=== PATIENT | male | born 1990 | race Two or more races ===

== ENCOUNTER 2016-09-16 13:27 | Emergency (ER) | payer OTHER ==
[2016-09-16 13:33] VITALS: BMI 25.8
--- NOTE | 2016-09-16 14:59 | PDOC ---
History of Present Illness - General History Source: Patient Exam Limitations: No Limitations - History of Present Illness Initial Comments: 09/16/16 15:01 The patient is a 26-year-old man, accompanied by his mother, with no past medical history who presents to the emergency department via walk-in for further evaluation of dizziness. No recent head injury, fall or other trauma. Patient states that he was in his normal state of health last night. This morning, he woke up and immediately felt dizzy and numbness on both of his hands. He describes his dizziness as a room-spinning sensation. He states he got up and walked around and recalls that standing and walking made his symptoms worse. He also reports associated symptoms of yellow emesis. No blood. He currently states that he is not dizzy and is mildly nauseous. He also recalls recently endorsing a stuffy nose w/ o cough, sob. No fever, chills, generalized weakness. No chest pain, lightheadedness, dizziness, palpitations, headache, visual changes. No abdominal pain, nausea, vomiting, diarrhea, dysuria, hematuria, frequency. No tingling, weakness sensations throughout his extremities. Allergies: No Known Drug Allergies Past Surgical History: None reported Social History: No tobacco, ETOH or recreational drug use. Primary Care Physician: Dr. Alberto Sanders <Nilam Fernandez - Last Filed: 09/16/16 16:26> <Steven Schulz - Last Filed: 09/17/16 20:23> - General Chief Complaint: Nausea/Vomiting Stated Complaint: DIZZINESS & VOMITING Time Seen by Provider: 09/16/16 14:14 Past History <Nilam Fernandez - Last Filed: 09/16/16 16:26> - Past Medical History Suicide Attempt (Hx): No - Immunization History Immunization Up to Date: Yes - Psycho/Social/Smoking Cessation Hx Anxiety: No Suicidal Ideation: No Smoking Status: No Smoking History: Never smoked Have you smoked in the past 12 months: No Number of Cigarettes Smoked Daily: 0 Information on smoking cessation initiated: No Hx Alcohol Use: No Drug/Substance Use Hx: No Substance Use Type: None <Steven Schulz - Last Filed: 09/17/16 20:23> - Past Medical History Allergies/Adverse Reactions: Allergies Allergy/AdvReac Type Severity Reaction Status Date / Time No Known Allergies Allergy Verified 09/16/16 13:33 Home Medications: Ambulatory Orders No Home Medications 0 dose .ROUTE UTDICT 12/14/13 Meclizine HCl [Antivert -] 25 mg PO TID PRN #14 tablet 09/16/16 Review of Systems - Review of Systems Able to Perform ROS?: Yes Comments:: 09/16/16 15:01 CONSTITUTIONAL: No reported: Fever, Chills, Diaphoresis, Generalized Weakness, Malaise, Loss of Appetite HEENT: No reported: Rhinorrhea, Nasal Congestion, Throat Pain, Throat Swelling, Difficulty Swallowing, Mouth Swelling, Ear Pain, Eye Pain, Visual Changes CARDIOVASCULAR: No reported: Chest Pain, Syncope, Palpitations, Irregular Heart Rate, Lightheadedness, Peripheral Edema RESPIRATORY: No reported: Cough, Shortness of Breath, SOB with Exertion, Orthopnea, Wheezing , Stridor, Hemoptysis GASTROINTESTINAL: Reported: Nausea. Vomiting. No reported: Abdominal pain, Abdominal Distension, Diarrhea, Constipation, Melena, Hematochezia GENITOURINARY: No reported: Dysuria, Frequency, Urgency, Hesitancy, Flank Pain, Genital Pain MUSCULOSKELETAL: No reported: Myalgia, Arthralgia, Joint Swelling, Back pain, Neck Pain SKIN: No reported: Rash, Itching, Pallor HEMEATOLOGIC/IMMUNOLOGIC: No reported: Easy Bleeding, Easy Bruising, Lymphadenopathy, Frequent infections ENDOCRINE: No reported: Unexplained Weight Gain, Unexplained Weight Loss, Heat Intolerance , Cold Intolerance NEUROLOGIC: Reported: Dizziness. Numbness on both hands. No reported: Headache, Focal Weakness, Paresthesias, Unsteady Gait, Seizure, Mental Status Changes, Incontinence PSYCHIATRIC: No reported: Anxiety, Depression <Nilam Fernandez - Last Filed: 09/16/16 16:26> *Physical Exam - Vital Signs Last Vital Signs Temp Pulse Resp BP Pulse Ox 99 F 66 18 145/73 99 09/16/16 13:28 09/16/16 13:28 09/16/16 13:28 09/16/16 13:28 09/16/16 13:28 - Physical Exam Comments: 09/16/16 15:01 GENERAL: The patient is awake, alert, and fully oriented, Nontoxic - in no acute distress. HEAD: Normocephalic, atraumatic. EYES: extraocular movements intact, sclera anicteric, conjunctiva clear. + Horizontal nystagmus ENT: Normal voice, Moist mucous membranes. NECK: Normal range of motion, supple LUNGS: Breath sounds equal, clear to auscultation bilaterally. No wheezes, no rhonchi, no rales. HEART: Regular rate and rhythm, without murmur, rub or gallop. ABDOMEN: Soft, nontender, normoactive bowel sounds. No guarding, no rebound.No CVA tenderness EXTREMITIES: Normal range of motion, no edema. No clubbing or cyanosis. No cords , erythema, or tenderness. NEURO: Mental status: The patient is oriented x3. Cranial nerves: Cranial nerves II through XII are intact Motor: The upper extremities are 5 over 5 in all muscle groups. The lower extremities are 5 over 5 in all muscle groups. No pronator drift. Sensation: Sensation is intact to light touch throughout. Neg romberg Cerebellar: Lmmzwr-vqijhd-tdge is normal in both upper extremities. Heel-knee- doll is normal in both lower extremities. Reflexes: 2+ and symmetric in the upper and lower extremities. Gait: Normal. Heel and toe walking are normal. Tandem gait is normal. PSYCH: Normal mood, normal affect. SKIN: Warm, Dry, normal turgor. <Nilam Fernandez - Last Filed: 09/16/16 16:26> - Vital Signs Last Vital Signs Temp Pulse Resp BP Pulse Ox 99 F 66 18 145/73 99 09/16/16 13:28 09/16/16 13:28 09/16/16 13:28 09/16/16 13:28 09/16/16 13:28 <Steven Schulz - Last Filed: 09/17/16 20:23> ED Treatment Course - LABORATORY CBC & Chemistry Diagram: 09/16/16 15:09 09/16/16 15:09 <Nilam Fernandez - Last Filed: 09/16/16 16:26> - LABORATORY CBC & Chemistry Diagram: 09/16/16 15:09 09/16/16 15:09 <Steven Schulz - Last Filed: 09/17/16 20:23> Medical Decision Making - Medical Decision Making 09/16/16 15:32 26y M woke with room spinning dizziness associated with nausea/vomiting, which has since largely resolved. no associate dheadache, cp, neck pain. pts exam unremarkable here, normal neuro and normal cerebellar finidngs. pt endorsed abd pain upon presentation but had since reoslved. suspect vertigo will give meclizine will ck labs to r/o anemia, metaoblic dernagement will reassess A portion of this note was documented by scribe services under my direction. I have reviewed the details of the note, within reason, and agree with the documentation with the following case summary and management plan written by me 09/16/16 16:22 labs reviewed noted for leukocytposis - p thas no sypmtoms suggestive of infection - suspect may be secondary to the ovmiting/stress this morning. pts abd was reassessed and it is soft nontender. pt feeling improved will d/c the pt with pmd fu return precautions were discused I discussed the physical exam findings, ancillary test results and final diagnoses with the patient. I answered all of the patient's questions. The patient was satisfied with the care received and felt comfortable with the discharge plan and treatment plan. The patient will call their primary care physician within 24 hours to arrange follow-up and will return to the Emergency Department with any new, persistent or worsening symptoms. <Steven Schulz - Last Filed: 09/17/16 20:23> *DC/Admit/Observation/Transfer - Attestations Scribe Attestion: 09/16/16 15:01 Documentation prepared by Nilam Fernandez, acting as diploma medical assistant for Steven Schulz MD. <Nilam Fernandez - Last Filed: 09/16/16 16:26> - Discharge Dispostion Admit: No <Steven Schulz - Last Filed: 09/17/16 20:23> Diagnosis at time of Disposition: Vertigo - Discharge Dispostion Disposition: HOME Condition at time of disposition: Improved - Prescriptions Prescriptions: Meclizine HCl [Antivert -] 25 mg PO TID PRN #14 tablet PRN Reason: Vertigo - Referrals Referrals: Alberto Sanders MD [Primary Care Provider] - - Patient Instructions Printed Discharge Instructions: DI for Vertigo Additional Instructions: Return to the emergency department immediately with ANY new, persistent or worsening symptoms. You MUST call and follow up with your doctor tomorrow for further evaluation of your symptoms. Results were discussed with you. Please make sure your doctor reviews the results of your emergency evaluation. If you had any xrays during your visit, it was read preliminarily by myself, a Radiologist will review it and if there are any additional findings we will call you. Print Language: DIVEHI
[2016-09-16] MEDS ORDERED: MECLIZINE HCL 25 MG TABLET (FP) PO ONE (15:04)
[2016-09-16] MEDS ORDERED: SODIUM CHLORIDE 1,000 ML IV ONE (15:04)
[2016-09-16] MEDS ORDERED: MECLIZINE HCL 25 MG TABLET (FP) ONE (15:14)
[2016-09-16 15:18] LABS: BASOPHIL 0.3 % (0-2.0); EOSINOPHIL 0.1 % (0-4.5); MCH 27.3 pg (25.7-33.7); MCHC 33.8 g/dl (32.0-35.9); MEAN CELL VOLUME 80.6 fl (80-96); MEAN PLT VOLUME 8.4 fl (7.5-11.1); NEUTROPHILS 88.3 % (42.8-82.8); PLATELET COUNT 258 K/MM3 (134-434); RDW 13.3 % (11.9-15.9); WHITE BLOOD COUNT 16.3 K/mm3 (4.0-10.0)
[2016-09-16 15:35] LABS: ALBUMIN 4.5 g/dl (3.4-5.0); ANION GAP 12 (8-16); CALCIUM 9.4 mg/dL (8.5-10.1); CO2 26 mmol/L (21-32); CREATININE 0.8 mg/dL (0.7-1.3); GLUCOSE,RANDOM 88 mg/dL (74-106); SGOT/AST 22 U/L (15-37); SGPT/ALT 23 U/L (12-78)
[2016-09-16 15:37] LABS: ALK PHOS 96 U/L (45-117); BILIRUBIN,TOTAL 0.9 mg/dL (0.2-1.0); TOT PROT 7.8 g/dl (6.4-8.2)
[2016-09-16 16:46] VITALS: BP 126/76; PULSE 67; TEMP 98.1
== END 2016-09-16 16:46 | disposition home or self-care (01) ==
LOC: JER 13:27
PROC: 3E0337Z Introduction of Electrolytic and Water Balance Substance into Peripheral Vein, Percutaneous Approach (ICD-10-PCS; principal; 2016-09-16)
DX: R42 Dizziness and giddiness (principal)
CPT/HCPCS: 36415; 80053; 85025; 96360; 99283-25

== ENCOUNTER 2018-07-15 04:12 | Emergency (ER) | payer OTHER ==
[2018-07-15 05:25] VITALS: BP 120/69; PULSE 91; TEMP 98.2; BMI 25.8
--- NOTE | 2018-07-15 05:40 | PDOC ---
History of Present Illness - General Chief Complaint: Pain Stated Complaint: STOMACH ACHE/VOMITING Time Seen by Provider: 07/15/18 05:40 History Source: Patient - History of Present Illness Initial Comments: 07/15/18 06:28 28 year old male with NV and epigastric pain after eating rice and beans. denies diarrhea, fever/ chills. no pmhx' Past History - Past Medical History Allergies/Adverse Reactions: Allergies Allergy/AdvReac Type Severity Reaction Status Date / Time No Known Allergies Allergy Verified 07/15/18 05:26 Home Medications: Ambulatory Orders No Home Medications 0 dose .ROUTE UTDICT 12/14/13 Meclizine HCl [Antivert -] 25 mg PO TID PRN #14 tablet 09/16/16 - Immunization History Immunization Up to Date: Yes - Suicide/Smoking/Psychosocial Hx Smoking Status: No Smoking History: Current some day smoker Have you smoked in the past 12 months: Yes Number of Cigarettes Smoked Daily: 5 Information on smoking cessation initiated: No Hx Alcohol Use: Yes Drug/Substance Use Hx: Yes (Marijuana) Substance Use Type: None *Physical Exam - Vital Signs Last Vital Signs Temp Pulse Resp BP Pulse Ox 98.2 F 91 H 18 120/69 99 07/15/18 04:12 07/15/18 04:12 07/15/18 04:12 07/15/18 04:12 07/15/18 04:12 - Physical Exam General Appearance: Yes: Appropriately Dressed HEENT: positive: Tonsillar Erythema Respiratory/Chest: positive: Lungs Clear, Normal Breath Sounds Cardiovascular: positive: Regular Rhythm, Regular Rate Gastrointestinal/Abdominal: positive: Normal Bowel Sounds, Tender (epigastric area only), Soft Extremity: positive: Normal Capillary Refill, Normal Inspection Integumentary: positive: Normal Color, Dry, Warm Neurologic: positive: Fully Oriented, Alert, Normal Mood/Affect Moderate Sedation - Procedure Monitoring Vital Signs: Procedure Monitoring Vital Signs Temperature 98.2 F 07/15/18 04:12 Pulse Rate 91 H 07/15/18 04:12 Respiratory Rate 18 07/15/18 04:12 Blood Pressure 120/69 07/15/18 04:12 O2 Sat by Pulse Oximetry (%) 99 07/15/18 04:12 Medical Decision Making - Medical Decision Making 07/15/18 06:39patient feels better. tolerated water. no vomiting *DC/Admit/Observation/Transfer Diagnosis at time of Disposition: Gastroenteritis - Discharge Dispostion Disposition: HOME Condition at time of disposition: Fair - Referrals Referrals: Alberto Sanders MD [Primary Care Provider] - Call tomorrow - Patient Instructions Printed Discharge Instructions: [place] Diet Additional Instructions: drink plenty of fluids take Maalox every 6 hours as needed for gas start a bland diet (bananas, rice apples toast) follow up with your doctor Additional Instructions: * Please call your personal physician to report your Emergency Department visit and to report your progress, if any. * If there is no improvement in symptoms in 2 days call your physician. * Return to the Emergency Department for any worsening symptoms. - Post Discharge Activity Forms/Work/School Notes: Back to Work
[2018-07-15] MEDS ORDERED: ONDANSETRON *ODT* 4 MG TABLET SL ONE (05:45)
--- NOTE | 2018-07-15 05:50 | PDOC ---
*Physical Exam - Vital Signs Last Vital Signs Temp Pulse Resp BP Pulse Ox 98.2 F 91 H 18 120/69 99 07/15/18 04:12 07/15/18 04:12 07/15/18 04:12 07/15/18 04:12 07/15/18 04:12 Medical Decision Making - Medical Decision Making 07/15/18 05:49 Patient seen by the advanced practice provider under my direct supervision. Ancillary testing reviewed as necessary. I agree with plan as outlined by the advanced practice provider *DC/Admit/Observation/Transfer Diagnosis at time of Disposition: Gastroenteritis - Discharge Dispostion Disposition: HOME Condition at time of disposition: Fair - Referrals Referrals: Alberto Sanders MD [Primary Care Provider] - Call tomorrow - Patient Instructions Printed Discharge Instructions: [place] Diet Additional Instructions: drink plenty of fluids take Maalox every 6 hours as needed for gas start a bland diet (bananas, rice apples toast) follow up with your doctor Additional Instructions: * Please call your personal physician to report your Emergency Department visit and to report your progress, if any. * If there is no improvement in symptoms in 2 days call your physician. * Return to the Emergency Department for any worsening symptoms. - Post Discharge Activity Forms/Work/School Notes: Back to Work
[2018-07-15] MEDS ORDERED: ONDANSETRON *ODT* 4 MG TABLET ONE (05:54)
[2018-07-15] MEDS ORDERED: MAG HYDROX/AL HYDROX/SIMETH 30 ML UNIT-DOSE CUP PO ONE (06:00)
[2018-07-15] MEDS ORDERED: MAG HYDROX/AL HYDROX/SIMETH 30 ML UNIT-DOSE CUP ONE (06:01)
== END 2018-07-15 07:12 | disposition home or self-care (01) ==
LOC: JER 04:12
DX: K52.9 Noninfective gastroenteritis and colitis, unspecified (principal); F17.210 Nicotine dependence, cigarettes, uncomplicated
CPT/HCPCS: 87070; 87880; 99281-25; Q0162

== ENCOUNTER 2021-06-18 05:00 | Emergency (ER) | payer OTHER ==
[2021-06-18 05:13] VITALS: BP 123/73; PULSE 110; TEMP 97.5; BMI 25.1
[2021-06-18] MEDS ORDERED: ACETAMINOPHEN 1000 MG/100 ML BAG IVPB ONE (05:52)
[2021-06-18] MEDS ORDERED: MAG HYDROX/AL HYDROX/SIMETH -MYLANTA- ORAL SUSPENSION PO ONE (05:52)
[2021-06-18] MEDS ORDERED: FAMOTIDINE 20 MG/50 ML IVPB 20 MG/50 ML MG IVPB ONE ×2 (05:52→06:06)
[2021-06-18] MEDS ORDERED: ONDANSETRON 4 MG/2 ML VIAL IVPUSH ONE (05:53)
[2021-06-18] MEDS ORDERED: LACTATED RINGERS SOLUTION 1000 ML INFUS.BAG IV ONE (05:55)
[2021-06-18] MEDS ORDERED: ONDANSETRON 4 MG/2 ML VIAL ONE (06:06)
[2021-06-18] MEDS ORDERED: MAG HYDROX/AL HYDROX/SIMETH 30 ML UNIT-DOSE CUP ONE (06:06)
[2021-06-18] MEDS ORDERED: ACETAMINOPHEN INJECTION 100 ML IVPB ONE (06:06)
[2021-06-18 07:24] LABS: HEMATOCRIT 46.1 % (35.4-49); HEMOGLOBIN 15.5 GM/dL (11.7-16.9); MCH 27.7 pg (25.7-33.7); MCHC 33.7 g/dl (32.0-35.9); MEAN CELL VOLUME 82.3 fl (80-96); MEAN PLT VOLUME 8.4 fl (7.5-11.1); PLATELET COUNT 186 10^3/uL (134-434); RDW 13.2 % (11.9-15.9); WHITE BLOOD COUNT 9.7 K/mm3 (4.0-10.0)
[2021-06-18 07:42] LABS: CALCIUM 9.2 mg/dL (8.5-10.1)
[2021-06-18 07:43] LABS: ALBUMIN 4.3 g/dl (3.4-5.0)
[2021-06-18 07:47] LABS: BILIRUBIN,TOTAL 0.4 mg/dL (0.2-1); TOT PROT 7.3 g/dl (6.4-8.2)
[2021-06-18 08:46] LABS: ANISOCYTOSIS 1+; MACROCYTOSIS 0; PLATELET ESTIMATE NORMAL
== END 2021-06-18 08:30 | disposition home or self-care (01) ==
LOC: JER 05:00
PROC: 3E0333Z Introduction of Anti-inflammatory into Peripheral Vein, Percutaneous Approach (ICD-10-PCS; principal; 2021-06-18)
PROC: 3E033GC Introduction of Other Therapeutic Substance into Peripheral Vein, Percutaneous Approach (ICD-10-PCS; 2021-06-18)
PROC: 3E033GC Introduction of Other Therapeutic Substance into Peripheral Vein, Percutaneous Approach (ICD-10-PCS; 2021-06-18)
DX: R11.2 Nausea with vomiting, unspecified (principal)
CPT/HCPCS: 36415; 80053; 83690; 85025; 87804; 99284-25; C9803; J0131; U0003; U0005

== ENCOUNTER 2021-08-12 16:04 | Emergency (ER) | payer OTHER ==
[2021-08-12 16:17] VITALS: BP 124/69; PULSE 78; TEMP 97; BMI 24.8
[2021-08-12] MEDS ORDERED: KETOROLAC TROMETHAMINE 30 MG/1 ML VIAL IM ONE (17:57)
[2021-08-12] MEDS ORDERED: diazePAM 5 MG TABLET PO ONE (17:57)
[2021-08-12] MEDS ORDERED: diazePAM 5 MG TABLET ONE (18:08)
[2021-08-12] MEDS ORDERED: KETOROLAC TROMETHAMINE 30 MG/1 ML VIAL ONE (18:08)
== END 2021-08-12 19:23 | disposition home or self-care (01) ==
LOC: JERFT 16:04 → JER 16:04 → JERFT 19:23
PROC: 3E0233Z Introduction of Anti-inflammatory into Muscle, Percutaneous Approach (ICD-10-PCS; principal; 2021-08-12)
DX: M54.6 Pain in thoracic spine (principal); V49.50XA Passenger injured in collision with unspecified motor vehicles in traffic accident, initial encounter
CPT/HCPCS: 72070-TC-FY; 99284-25

== ENCOUNTER 2022-08-25 14:31 | Emergency (ER) | payer OTHER ==
[2022-08-25 14:36] VITALS: BP 116/56; RESP 18; TEMP 98; BMI 21.5
[2022-08-25 16:12] VITALS: PULSE 72
[2022-08-25 17:42] LABS: PH,URINE 5.5 (5.0-8.0); URINE APPEARANCE CLEAR; URINE BILIRUBIN NEGATIVE (NEGATIVE); URINE COLOR YELLOW; URINE GLUCOSE (UA) NEGATIVE (NEGATIVE); URINE KETONE NEGATIVE (NEGATIVE); URINE LEUK ESTERASE NEGATIVE (NEGATIVE); URINE NITRITE NEGATIVE (NEGATIVE); URINE PROTEIN NEGATIVE (NEGATIVE); URINE UROBILINOGEN 0.2 mg/dL (0.2-1.0)
== END 2022-08-25 18:39 | disposition home or self-care (01) ==
LOC: JER 14:31
DX: N50.812 Left testicular pain (principal)
CPT/HCPCS: 76870-TC; 81003; 87086; 99284-25

== ENCOUNTER 2022-10-06 18:47 | Emergency (ER) | payer OTHER ==
[2022-10-06 18:54] VITALS: BP 129/76; PULSE 58; RESP 18; TEMP 97.5; BMI 21.5
[2022-10-06] MEDS ORDERED: SODIUM CHLORIDE 0.9% 500 ML INFUS.BAG IV ONE (19:12)
[2022-10-06] MEDS ORDERED: ONDANSETRON 4 MG/2 ML VIAL IVPUSH ONE (19:12)
[2022-10-06] MEDS ORDERED: ONDANSETRON 4 MG/2 ML VIAL ONE (19:54)
[2022-10-06 20:28] LABS: BASO % 0.4 % (0-2.0); EOS % 0.1 % (0-4.5); HEMATOCRIT 47.8 % (35.4-49); HEMOGLOBIN 16.3 GM/dL (11.7-16.9); LYMPH % 7.8 % (8-40); MCH 28.1 pg (25.7-33.7); MCHC 34.1 g/dl (32.0-35.9); MEAN CELL VOLUME 82.2 fl (80-96); MEAN PLT VOLUME 8.2 fl (7.5-11.1); MONO % 3.9 % (3.8-10.2); NEUT % 87.8 % (42.8-82.8); PLATELET COUNT 236 10^3/uL (134-434); RBC 5.81 M/mm3 (4.00-5.60); RDW 13.6 % (11.9-15.9); WHITE BLOOD COUNT 12.6 K/mm3 (4.0-10.0)
[2022-10-06 20:50] LABS: ALBUMIN 4.7 g/dl (3.4-5.0); BLOOD UREA NITROGEN 21.7 mg/dL (7-18); CALCIUM 10.1 mg/dL (8.5-10.1)
[2022-10-06 20:53] LABS: CREATININE 0.8 mg/dL (0.55-1.3)
[2022-10-06 20:55] LABS: BILIRUBIN,TOTAL 0.9 mg/dL (0.2-1)
== END 2022-10-06 21:23 | disposition home or self-care (01) ==
LOC: JER 18:47
PROC: 3E033NZ Introduction of Analgesics, Hypnotics, Sedatives into Peripheral Vein, Percutaneous Approach (ICD-10-PCS; principal; 2022-10-06)
DX: R11.2 Nausea with vomiting, unspecified (principal); R10.9 Unspecified abdominal pain; Z20.822 Contact with and (suspected) exposure to COVID-19
CPT/HCPCS: 0241U-QW; 36415; 80053; 83690; 85025; 99284-25

== ENCOUNTER 2024-01-05 16:55 | Emergency (ER) | payer OTHER ==
[2024-01-05 16:59] VITALS: BP 120/73; PULSE 69; RESP 18; TEMP 97; BMI 25.1
== END 2024-01-05 18:08 | disposition home or self-care (01) ==
LOC: JERFT 16:55
PROC: 099 Ear, Nose, Sinus, Drainage (ICD-10-PCS; principal; 2024-01-05)
DX: H60.02 Abscess of left external ear (principal)
CPT/HCPCS: 99283-25

== ENCOUNTER 2025-02-22 20:28 | Emergency (ER) | payer SELFPAY ==
[2025-02-22 20:38] VITALS: BP 113/56; PULSE 88; RESP 18; TEMP 98.3; BMI 25.8
== END 2025-02-22 22:13 | disposition home or self-care (01) ==
LOC: JER 20:28
DX: R19.00 Intra-abdominal and pelvic swelling, mass and lump, unspecified site (principal)
CPT/HCPCS: 99283-25